=== PATIENT | female | born 1945 ===

== ENCOUNTER 2020-04-26 14:32 | Outpatient (CLI) | payer MEDICAID ==
[2020-04-26 14:40] VITALS: BP 150/86
--- NOTE | 2020-04-26 16:15 | Consultation ---
DATE OF CONSULTATION: 04/26/2020 GASTROENTEROLOGY CONSULTATION CONSULTING PHYSICIAN: Arnold Jimenez MD. CHIEF COMPLAINT: Abdominal pain. HISTORY OF PRESENT ILLNESS: This is a very pleasant 74-year-old [place] female mainly complaining of bladder incontinence and loss of urine when she goes to the bathroom, apparently seen by urologist. She had a mesh placed in the pelvic area and she is very uncomfortable. She also complained of rectal dysfunction with having multiple small BMs and having a hard time to take the stool out of the rectum requiring water enemas multiple times. Of note, she had four vaginal deliveries. She also complained of severe bloating, gas, and abdominal distention with minimum eating. PAST MEDICAL HISTORY: 1. GERD. 2. Depression. 3. Hemorrhoids. 4. Hypercholesterolemia. 5. Hypertension. PAST SURGICAL HISTORY: 1. Back surgery. 2. Hysterectomy. 3. Hemorrhoidectomy. 4. Left knee surgery. 5. Bladder prolapse. MEDICATIONS: Please see medication reconciliation list. FAMILY HISTORY: No family history of GI malignancies. SOCIAL HISTORY: The patient denies any tobacco, alcohol, or drug abuse. ALLERGIES: No known drug allergies. REVIEW OF SYSTEMS: Positive as above. PHYSICAL EXAMINATION: VITAL SIGNS: Temperature 97.1, blood pressure 160/86, pulse 79, respirations 20. HEENT: Normocephalic and atraumatic. Sclerae are anicteric. NECK: Supple. No evidence of obvious lymphadenopathy. CARDIOVASCULAR: Regular rate and rhythm. Plus S1, S2. LUNGS: Clear to auscultation bilaterally. ABDOMEN: Positive bowel sounds. Soft and nontender. No rebound. No guarding. No peritoneal sign. EXTREMITIES: No cyanosis, no clubbing, no edema. ASSESSMENT AND PLAN: This is a 74-year-old female with 1. SIBO. We are going to give a trial of Xifaxan. 2. Rectal dysfunction. The patient was given information about Kegel exercises and frequent toileting and a gentle laxative if needed. In terms of her urinary symptoms, the patient was instructed to follow up with Urology. Arnold Jimenez M.D. DR: ILENE JOB#: [id number] CC:
[2020-04-27] MEDS ORDERED: DULOXETINE HCL60 MG PO (15:45)
[2020-04-27] MEDS ORDERED: METOPROLOL SUCC50 MG ORAL (15:45)
[2020-04-27] MEDS ORDERED: ZOLOFT100 MG ORAL (15:45)
[2020-04-27] MEDS ORDERED: SYNTHROID88 MCG ORAL (15:45)
[2020-04-27] MEDS ORDERED: ATORVASTATIN CA40 MG ORAL (15:45)
[2020-04-27] MEDS ORDERED: KLONOPIN0.5 MG ORAL (15:45)
== END 2020-04-26 16:32 | disposition home or self-care (01) ==
LOC: PAN 14:32
DX: R10.9 Unspecified abdominal pain (principal); K56.609 Unspecified intestinal obstruction, unspecified as to partial versus complete obstruction; K59.9 Functional intestinal disorder, unspecified; Z90.710 Acquired absence of both cervix and uterus; K21.9 Gastro-esophageal reflux disease without esophagitis; F32.9 Major depressive disorder, single episode, unspecified; E78.00 Pure hypercholesterolemia, unspecified; I10 Essential (primary) hypertension; R14.0 Abdominal distension (gaseous)
CPT/HCPCS: G0463